=== PATIENT | male | born 2000 | race Caucasian/White ===

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

== ENCOUNTER 2020-06-11 16:20 | Observation (INO) | payer OTHER ==
[~2020-06-11] VITALS: Ht 172.7 cm; Wt 56.7 kg
[~2020-06-11 16:20] MED LIST changes: +NAPROSYN500 MG PO
[2020-06-11 16:40] LABS: HEMOGLOBIN 16.2 gm/dl (14.0-17.5); RED BLOOD COUNT 5.24 M/UL (4.20-5.50); WHITE BLOOD COUNT 8.9 K/UL (4.5-11.0)
[2020-06-11 17:10] LABS: BUN/CREATININE RATIO 21 (0-10)
[2020-06-12 04:32] LABS: HEMOGLOBIN 14.5 gm/dl (14.0-17.5); RED BLOOD COUNT 4.77 M/UL (4.20-5.50); WHITE BLOOD COUNT 9.6 K/UL (4.5-11.0)
[2020-06-12 05:03] LABS: BUN/CREATININE RATIO 20 (0-10)
[2020-06-13 09:10] LABS: BUN/CREATININE RATIO 11 (0-10)
[2020-06-13] MEDS ORDERED: TRAMADOL HCL50 MG PO (12:54)
--- NOTE | 2020-06-13 16:07 | NUR ---
PER TELEPHONE ORDER WITH READ BACK FROM DOCTOR WILCOX, PATIENT WAS PROVIDED WITH A WORK EXCUSE TO COVER TIME IN HOSPITAL UNTIL HE FOLLOWS UP WITH DOCTOR WHITNEY ON 06-19-20 BY THE NURSE
== END 2020-06-13 16:07 | disposition home or self-care (01) ==
LOC: ER1 16:20 → MED SURG 4 18:00 → CDU 18:00 → MED SURG 4 20:37
PROVIDERS: Emergency Medicine; ADMIT Surgery
DX: S71.132A Puncture wound without foreign body, left thigh, initial encounter (principal); S70.12XA Contusion of left thigh, initial encounter; E87.6 Hypokalemia; J45.909 Unspecified asthma, uncomplicated; F17.210 Nicotine dependence, cigarettes, uncomplicated; Z91.012 Allergy to eggs; Z20.822 Contact with and (suspected) exposure to COVID-19; W34.00XA Accidental discharge from unspecified firearms or gun, initial encounter
CPT/HCPCS: 36415; 73552; 80048; 80053; 82550; 82553; 83874; 85025; 90471; 90715; 96374; 96375; 96376; 99284; G0378; J0690; J2270; J2405; J7030; Q9967; U0002